=== PATIENT | female | born 1960 | race Caucasian/White ===

== ENCOUNTER 2017-11-04 10:26 | Emergency (ER) | payer SELFPAY ==
--- NOTE | 2017-11-04 11:38 | ER Document Report ---
ED Medical Screen (RME) - General Chief Complaint: Abdominal Pain Stated Complaint: ABDOMINAL PAIN/BILATERAL LEG PAIN Time Seen by Provider: 11/04/17 11:36 TRAVEL OUTSIDE OF THE U.S. IN LAST 30 DAYS: No - HPI Notes: 11/04/17 11:36 RAPID MEDICAL EVALUATION DISCLOSURE I have seen this patient as part of a Rapid Medical Evaluation and, if applicable, placed any initially appropriate orders. The patient will be seen and fully evaluated, including a full history and physical exam, by a provider ( in Main ED or Fast Track) when a room becomes available. Pt. c/o RLQ sharp constant abdominal pain for the last few days, associated with right low back pain. She also states since getting her b/l TKR in November (in [place]) she has had constant b/l LE pain from the knees radiating down her shins. - Related Data Allergies/Adverse Reactions: ciprofloxacin [From Cipro] Adverse Reaction (Verified 11/04/17 10:28) Past Medical History - Social History Chew tobacco use (# tins/day): No Frequency of alcohol use: None Drug Abuse: None Renal/ Medical History: Denies: Hx Peritoneal Dialysis Physical Exam - Vital signs Vitals: Temp Pulse Resp BP Pulse Ox 98.7 F 76 16 126/74 H 94 11/04/17 10:42 11/04/17 10:42 11/04/17 10:42 11/04/17 10:42 11/04/17 10:42 Course - Vital Signs Vital signs: Temp Pulse Resp BP Pulse Ox 98.7 F 76 16 126/74 H 94 11/04/17 10:42 11/04/17 10:42 11/04/17 10:42 11/04/17 10:42 11/04/17 10:42
[2017-11-04 12:15] LABS: ABSOLUTE BASOPHILS # (AUTO) 0.1 10^3/uL (0.0-0.2); ABSOLUTE EOSINOPHILS # (AUTO) 0.2 10^3/uL (0.0-0.6); ABSOLUTE MONOCYTES (AUTO) 0.4 10^3/uL (0.1-1.4); ABSOLUTE NEUT (AUTO) 4.6 10^3/uL (1.7-8.2); BASOPHILS % (AUTO) 0.8 % (0-2); EOSINOPHILS % (AUTO) 3.2 % (0-6); HEMATOCRIT 45.2 % (36.0-47.0); HEMOGLOBIN 15.3 g/dL (12.0-15.5); LYMPHOCYTES % (AUTO) 27.3 % (13-45); MEAN CORPUSCULAR HEMOGLOBIN 29.6 pg (27.0-33.4); MEAN CORPUSCULAR HGB CONC 33.8 g/dL (32.0-36.0); MEAN CORPUSCULAR VOLUME 88 fl (80-97); MONOCYTES % (AUTO) 5.7 % (3-13); PLATELET COUNT 217 10^3/uL (150-450); RED BLOOD COUNT 5.16 10^6/uL (3.72-5.28); RED CELL DISTRIBUTION WIDTH 13.5 % (11.5-14.0); TOTAL CELLS COUNTED % (AUTO) 100 %; WHITE BLOOD COUNT 7.2 10^3/uL (4.0-10.5)
[2017-11-04 12:33] LABS: ALANINE AMINOTRANSFERASE 27 U/L (9-52); ALBUMIN 4.6 g/dL (3.5-5.0); ALKALINE PHOSPHATASE 91 U/L (38-126); ANION GAP 10 (5-19); ASPARTATE AMINO TRANSFERASE 20 U/L (14-36); BILIRUBIN,DIRECT 0.3 mg/dL (0.0-0.4); BILIRUBIN,TOTAL 0.8 mg/dL (0.2-1.3); BLOOD UREA NITROGEN 17 mg/dL (7-20); CALCIUM 10.2 mg/dL (8.4-10.2); CARBON DIOXIDE 29 mmol/L (22-30); CHLORIDE 103 mmol/L (98-107); GLUCOSE 103 mg/dL (75-110); POTASSIUM 4.6 mmol/L (3.6-5.0); SODIUM 142.2 mmol/L (137-145); TOTAL PROTEIN 7.7 g/dL (6.3-8.2)
[2017-11-04 13:46] LABS: APPEARANCE,URINE CLEAR; BILIRUBIN,URINE NEGATIVE (NEGATIVE); COLOR,URINE YELLOW; GLUCOSE, URINE NEGATIVE (NEGATIVE); KETONES,URINE NEGATIVE (NEGATIVE); LEUKOCYTE ESTERASE,URINE NEGATIVE (NEGATIVE); NITRITE,URINE NEGATIVE (NEGATIVE); PROTEIN,URINE NEGATIVE (NEGATIVE); URINE SPECIFIC GRAVITY 1.015; UROBILINOGEN,URINE NEGATIVE mg/dL (<2.0)
[2017-11-04] MEDS ORDERED: DEXAMETHASONE SOD PHOS INJ 10 MG/1 ML VIAL IV ONE (13:55)
[2017-11-04] MEDS ORDERED: IPRATROPIUM/ALBUTEROL 0.5-2.5 MG/3 ML AMPUL NEB ONE (13:55)
--- NOTE | 2017-11-04 13:56 | ER Document Report ---
ED General - General Chief Complaint: Abdominal Pain Stated Complaint: ABDOMINAL PAIN/BILATERAL LEG PAIN Time Seen by Provider: 11/04/17 11:36 TRAVEL OUTSIDE OF THE U.S. IN LAST 30 DAYS: No - HPI Notes: Patient is a 57-year-old female with a history of asthma, bilateral TKA 5 months ago, diverticulosis who presents to the ED complaining of right lower quadrant pain x3-4 days and bilateral tibial pain since her surgery. Patient states that her abdominal pain will sometimes radiate into her back. She is still eating and drinking without difficulties otherwise. She is urinating normally and having bowel movements. Patient states that the pain is constant and has been there every day. Patient states that she does not have any pain to her knees, but does have pain to the tibia anteriorly bilaterally. Patient states that she has addressed this with her surgeon in [place] previously as well without resolve. Patient states that she moved to the area and is now here and will not be going back to [place]. She does admit to smoking but denies IV drug use. Patient states that she has been using her reading treatments regularly, but does continue to wheeze and have an dry nonproductive cough. No redness or swelling to the knees b/l. Denies any headache, fever, neck pain, URI, sore throat, chest pain, palpitations, syncope, cough, shortness of breath, wheeze, dyspnea, nausea/vomiting/diarrhea, urinary retention, dysuria, hematuria, loss of control of bowel or bladder, numbness/ tingling, saddle anesthesia, muscle paralysis/weakness, or rash. - Related Data Allergies/Adverse Reactions: ciprofloxacin [From Cipro] Adverse Reaction (Verified 11/04/17 10:28) Past Medical History - Social History Smoking Status: Current Every Day Smoker Chew tobacco use (# tins/day): No Frequency of alcohol use: None Drug Abuse: None Family History: Reviewed & Not Pertinent Patient has suicidal ideation: No Patient has homicidal ideation: No Pulmonary Medical History: Reports: Hx Asthma Renal/ Medical History: Denies: Hx Peritoneal Dialysis Past Surgical History: Reports: Hx Orthopedic Surgery - bilat knees, L ankle, neck Review of Systems - Review of Systems -: Yes All other systems reviewed and negative Physical Exam - Vital signs Vitals: Temp Pulse Resp BP Pulse Ox 98.7 F 76 16 126/74 H 94 11/04/17 10:42 11/04/17 10:42 11/04/17 10:42 11/04/17 10:42 11/04/17 10:42 - Notes Notes: PHYSICAL EXAMINATION: GENERAL: Well-appearing, well-nourished and in no acute distress. EYES: Pupils equal round and reactive to light, extraocular movements intact, sclera anicteric, conjunctiva are normal. ENT: Nares patent and without discharge. oropharynx clear without exudates. No tonsilar hypertrophy or erythema. Moist mucous membranes. NECK: Normal range of motion, supple without lymphadenopathy LUNGS: Breath sounds clear to auscultation bilaterally and equal. No wheezes rales or rhonchi. HEART: Regular rate and rhythm without murmurs, rubs, gallops. ABDOMEN: Soft, nondistended abdomen. No guarding, no rebound. No masses appreciated. Normal bowel sounds present. No CVA tenderness bilaterally. + tenderness to the RLQ. Jeong negative. Musculoskeletal: Knees b/l: FROM to passive/active. Strength 5+/5. No swelling , warmth, effusion, wound dehiscence, or tenderness. N/v intact distal. + tenderness to the anterior prox tibia b/l w/o deformity, ecchymosis, or erythema. Extremities: No cyanosis, clubbing, or edema b/l. Peripheral pulses 2+. Capillary refill less than 3 seconds. NEUROLOGICAL: Normal speech, normal gait. Normal sensory, motor exams PSYCH: Normal mood, normal affect. SKIN: Warm, Dry, normal turgor, no rashes or lesions noted. Course - Re-evaluation Re-evalutation: 11/04/17 15:06 Patient has been repeatedly requesting narcotics as she was on Percocet status post her knee replacements. Patient was advised that I will not be prescribing her narcotics at this time. Offered Toradol which she initially declined than Tylenol which she then declined and then requested Toradol so Toradol was ultimately given. Pt is very upset about the narcotics issue and wants another provider. I did review with Dr. Lora who is in agreement with my treatment at this time and states that the work up has otherwise been completed and she can be discharged when results are back if warranted. 11/04/17 15:29 Patient is an afebrile, well-hydrated, 57-year-old female who presents to the ED with abdominal pain unspecified and b/l tibial pain, chronic. Vitals are acceptable. PE is otherwise unremarkable. CT scan of the abdomen and pelvis was unremarkable for any acute pathology but does note a 12mm common bile duct. X-rays of the tib/fib bilaterally were negative. She has no significant tachycardia, tachypnea, or hypoxia. She is tolerating p.o. without any difficulties. Observation for appendicitis reviewed. CBC, CMP, urinalysis were unremarkable for any acute pathology aside from some blood noted in the urine. At this time, I have lower suspicion for acute appendicitis, bowel obstruction, acute cholecystitis, acute cholangitis, perforated diverticulitis, incarcerated hernia, pancreatitis, perforated ulcer, peritonitis, sepsis, pelvic inflammatory disease, or other systemic emergent condition at this time. Patient is aware that her condition can change from initial presentation and she needs to monitor symptoms closely and seek medical attention if any acute changes. I will send her home with naproxen. Conservative measures otherwise for symptoms. Recheck with your PCM in 3-5 days. Consider consult with Ortho/ PT. Return to the ED with any worsening/concerning symptoms otherwise as reviewed in discharge. Patient is in agreement. - Vital Signs Vital signs: Temp Pulse Resp BP Pulse Ox 97.7 F 64 20 133/58 H 95 11/04/17 15:25 11/04/17 15:25 11/04/17 15:25 11/04/17 15:25 11/04/17 15:25 - Laboratory Result Diagrams: 11/04/17 11:51 11/04/17 11:51 Laboratory results interpreted by me: 11/04/17 11:37 Urine Blood MODERATE H Discharge - Discharge Clinical Impression: Bilateral lower extremity pain Unspecified abdominal pain Qualifiers: Abdominal location: right lower quadrant Qualified Code(s): R10.31 - Right lower quadrant pain Condition: Stable Disposition: HOME, SELF-CARE Instructions: Abdominal Pain ([facility]), Observation for Appendicitis ([facility]) Additional Instructions: Rest, Ice, Compression, Elevation Tylenol/ibuprofen as needed Light stretches daily Strength exercises as able Moist heat and massage may help F/u with your PCP in 3-5 days for a recheck Schedule an outpatient f/u with General surgery. Consider consult(s) with Orthopedics/physical therapy for ongoing/worsening symptoms Return to the ED with any worsening symptoms and/or development of fever, headache, chest pain, palpitations, syncope, shortness of breath, trouble breathing, abdominal pain, n/v/d, muscle weakness/paralysis, numbness/tingling, swelling, redness, or other worsening symptoms that are concerning to you. Prescriptions: Naproxen 500 mg PO BID PRN #30 tablet PRN Reason: Forms: Elevated Blood Pressure, Smoking Cessation Education Referrals: [facility] ([facility]) [Provider Group] - Follow up as needed MARTHA BARONE MD [ACTIVE STAFF] - Follow up as needed
[2017-11-04] MEDS ORDERED: KETOROLAC TROMETHAMINE INJ/PF 30 MG/1 ML SDV IV ONE ×2 (14:01→14:37)
[2017-11-04] MEDS ORDERED: ACETAMINOPHEN 325 MG TABLET PO ONE (14:29)
--- NOTE | 2017-11-04 15:15 | RADIOLOGY REPORT (SQ) ---
EXAM DESCRIPTION: TIB FIB BILAT 2 VIEWS COMPLETED DATE/TIME: 11/04/2017 3:01 pm REASON FOR STUDY: tibial pain s/p bilateral TKA 5mos ago COMPARISON: None. NUMBER OF VIEWS: Two views. TECHNIQUE: Two radiographic images acquired of the right tibia and fibula to include the knee and an kle in at least one projection. LIMITATIONS: None. FINDINGS: MINERALIZATION: Normal. BONES: No acute fracture or dislocation. No worrisome bone lesions. SOFT TISSUES: No obvious swelling or foreign body. OTHER: Intact knee arthroplasty. IMPRESSION: No acute findings. TECHNICAL DOCUMENTATION: JOB ID: [id number] [employer]- All Rights Reserved Reading location - IP/workstation name: Unknown
--- NOTE | 2017-11-04 15:23 | RADIOLOGY REPORT (SQ) ---
EXAM DESCRIPTION: CT ABD/PELVIS WITH IV ONLY COMPLETED DATE/TIME: 11/04/2017 3:09 pm REASON FOR STUDY: RLQ pain COMPARISON: None. TECHNIQUE: CT scan of the abdomen and pelvis performed using helical scanning technique with dynamic intravenous contrast injection. No oral contrast. Images reviewed with lung, soft tissue, and bone windows. Reconstructed coronal and sagittal MPR images reviewed. Delayed images for evaluation of the urinary system also acquired. All images stored on PACS. All CT scanners at this facility use dose modulation, iterative reconstruction, and/or weight based d osing when appropriate to reduce radiation dose to as low as reasonably achievable (ALARA). [facility]: Dose Right [facility]: CareDose [facility]: Dose Right [facility]: Teradose 4D [facility]: First Aid Shot Therapy CONTRAST TYPE AND DOSE: 100 cc Isovue 370- low osmolar. RENAL FUNCTION: GFR > 60. RADIATION DOSE: . LIMITATIONS: None. FINDINGS: LOWER CHEST: No significant findings. No nodules or infiltrates. LIVER: Normal size. No masses. Common bile duct measures about 12 mm in the pancreatic head. Mild i ntrahepatic biliary dilatation. Borderline dilatation of the proximal pancreatic duct. SPLEEN: Normal size. No focal lesions. PANCREAS: No masses. No significant calcifications. No adjacent inflammation or peripancreatic fluid collections. Pancreatic duct not dilated. GALLBLADDER: No identified stones by CT criteria. No inflammatory changes to suggest cholecystitis. ADRENAL GLANDS: No significant masses or asymmetry. RIGHT KIDNEY AND URETER: No solid masses. No significant calcifications. No hydronephrosis or hyd roureter. LEFT KIDNEY AND URETER: No solid masses. No significant calcifications. No hydronephrosis or hydr oureter. AORTA AND VESSELS: No aneurysm. No dissection. Renal arteries, SMA, celiac without stenosis. RETROPERITONEUM: No retroperitoneal adenopathy, hemorrhage or masses. BOWEL AND PERITONEAL CAVITY: No masses or inflammatory changes. No free fluid or peritoneal masses. APPENDIX: Normal. PELVIS: No mass. No free fluid. Normal bladder. ABDOMINAL WALL: No masses. No hernias. BONES: No significant or acute findings. OTHER: No other significant finding. IMPRESSION: Biliary dilatation without visualized gallstones or ampullary mass. Correlation with [facility] chemistries is recommended. TECHNICAL DOCUMENTATION: JOB ID: [id number] Quality ID # [id number]: Final reports with documentation of one or more dose reduction techniques (e.g., Au tomated exposure control, adjustment of the mA and/or kV according to patient size, use of iterative reconstruction technique) 2010 [email or web address]- All Rights Reserved Reading location - IP/workstation name: Unknown
[2017-11-04 15:27] VITALS: BP 133/58
== END 2017-11-04 15:46 | disposition home or self-care (01) ==
LOC: ER 10:26
DX: R10.13 Epigastric pain (principal); M79.662 Pain in left lower leg; M79.661 Pain in right lower leg; G89.29 Other chronic pain; J45.20 Mild intermittent asthma, uncomplicated; Z96.653 Presence of artificial knee joint, bilateral; Z87.19 Personal history of other diseases of the digestive system; F17.200 Nicotine dependence, unspecified, uncomplicated; R05 Cough
CPT/HCPCS: 94640; 99284; 96374; 96375; 36415; 85025; 80053; 81001; 73590; 74177; J1885; J1100; J7620

== ENCOUNTER 2018-07-28 11:53 | Emergency (ER) | payer SELFPAY ==
--- NOTE | 2018-07-28 12:24 | EKG REPORT ---
SEVERITY:- OTHERWISE NORMAL ECG - SINUS TACHYCARDIA : Confirmed by: Jose Heiwtt MD 28-Jul-2018 12:23:44
[2018-07-28] MEDS ORDERED: IPRATROPIUM/ALBUTEROL 0.5-2.5 MG/3 ML AMPUL NEB ONE ×2 (12:48→15:21)
[2018-07-28] MEDS ORDERED: METHYLPREDNISOLONE INJ 125 MG/2 ML SDV IV ONE (12:49)
--- NOTE | 2018-07-28 12:50 | ER Document Report ---
ED Medical Screen (RME) - General Chief Complaint: Flu Symptoms Stated Complaint: FEVER Time Seen by Provider: 07/28/18 12:46 Notes: Patient says she is having a hard time breathing. Been going on all this past week. She is developed a cough which is productive of yellow sputum. She has had some fevers as well. Patient denies a history of asthma or COPD, even though she is still a cigarette smoker. Says her doctor checked her out for C OPD a couple of years ago and told her she did not have it. Complains of some headache. Denies any heart problems or congestive heart failure. Denies diabetes. TRAVEL OUTSIDE OF THE U.S. IN LAST 30 DAYS: No - Related Data Allergies/Adverse Reactions: ciprofloxacin [From Cipro] Adverse Reaction (Verified 07/28/18 11:55) Past Medical History - Social History Chew tobacco use (# tins/day): No Frequency of alcohol use: None Drug Abuse: None Pulmonary Medical History: Reports: Hx Asthma Renal/ Medical History: Denies: Hx Peritoneal Dialysis Past Surgical History: Reports: Hx Orthopedic Surgery - bilat knees, L ankle, neck Physical Exam - Vital signs Vitals: Temp Pulse Resp BP Pulse Ox 100.0 F 106 H 16 98/67 L 94 07/28/18 12:25 07/28/18 12:25 07/28/18 12:25 07/28/18 12:25 07/28/18 12:25 Course - Vital Signs Vital signs: Temp Pulse Resp BP Pulse Ox 100.0 F 106 H 16 98/67 L 94 07/28/18 12:25 07/28/18 12:25 07/28/18 12:25 07/28/18 12:25 07/28/18 12:25
--- NOTE | 2018-07-28 13:29 | RADIOLOGY REPORT (SQ) ---
EXAM DESCRIPTION: CHEST 2 VIEWS COMPLETED DATE/TIME: 07/28/2018 1:20 pm REASON FOR STUDY: Wheezing, cough, fever, smoker COMPARISON: None. EXAM PARAMETERS: NUMBER OF VIEWS: two views TECHNIQUE: Digital Frontal and Lateral radiographic views of the chest acquired. RADIATION DOSE: NA LIMITATIONS: none FINDINGS: LUNGS AND PLEURA: No opacities, masses or pneumothorax. No pleural effusion. MEDIASTINUM AND HILAR STRUCTURES: No masses or contour abnormalities. HEART AND VASCULAR STRUCTURES: Heart normal size. No evidence for failure. BONES: No acute findings. HARDWARE: None in the chest. OTHER: No other significant finding. IMPRESSION: NO ACUTE RADIOGRAPHIC FINDING IN THE CHEST. TECHNICAL DOCUMENTATION: JOB ID: [id number] [employer]- All Rights Reserved Reading location - IP/workstation name: [email or web address]
[2018-07-28 13:35] LABS: ABSOLUTE BASOPHILS # (AUTO) 0.1 10^3/uL (0.0-0.2); ABSOLUTE EOSINOPHILS # (AUTO) 0.2 10^3/uL (0.0-0.6); ABSOLUTE LYMPHOCYTES (AUTO) 1.2 10^3/uL (0.5-4.7); ABSOLUTE MONOCYTES (AUTO) 1.2 10^3/uL (0.1-1.4); ABSOLUTE NEUT (AUTO) 13.9 10^3/uL (1.7-8.2); BASOPHILS % (AUTO) 0.4 % (0-2); EOSINOPHILS % (AUTO) 1.4 % (0-6); HEMOGLOBIN 14.7 g/dL (12.0-15.5); LYMPHOCYTES % (AUTO) 7.4 % (13-45); MEAN CORPUSCULAR HEMOGLOBIN 31.5 pg (27.0-33.4); MEAN CORPUSCULAR HGB CONC 34.1 g/dL (32.0-36.0); MEAN CORPUSCULAR VOLUME 92 fl (80-97); PLATELET COUNT 207 10^3/uL (150-450); RED BLOOD COUNT 4.66 10^6/uL (3.72-5.28); RED CELL DISTRIBUTION WIDTH 13.5 % (11.5-14.0); SEGMENTED NEUTROPHILS % (AUTO) 83.8 % (42-78); TOTAL CELLS COUNTED % (AUTO) 100 %; WHITE BLOOD COUNT 16.6 10^3/uL (4.0-10.5)
[2018-07-28 13:50] LABS: ALANINE AMINOTRANSFERASE 20 U/L (9-52); ALKALINE PHOSPHATASE 107 U/L (38-126); ANION GAP 11 (5-19); ASPARTATE AMINO TRANSFERASE 26 U/L (14-36); BILIRUBIN,DIRECT 0.3 mg/dL (0.0-0.4); BILIRUBIN,TOTAL 1.1 mg/dL (0.2-1.3); BLOOD UREA NITROGEN 15 mg/dL (7-20); CALCIUM 10.2 mg/dL (8.4-10.2); CARBON DIOXIDE 29 mmol/L (22-30); CHLORIDE 102 mmol/L (98-107); GLUCOSE 103 mg/dL (75-110); POTASSIUM 4.3 mmol/L (3.6-5.0); SODIUM 142.3 mmol/L (137-145); TOTAL PROTEIN 7.7 g/dL (6.3-8.2)
[2018-07-28] MEDS ORDERED: ACETAMINOPHEN 325 MG TABLET PO ONE (15:14)
[2018-07-28] MEDS ORDERED: NORMAL SALINE 1000 ML 1,000 ML IV ONE (16:48)
--- NOTE | 2018-07-28 16:57 | ER Document Report ---
ED General - General TRAVEL OUTSIDE OF THE U.S. IN LAST 30 DAYS: No <EZIO SANTIAGO - Last Filed: 07/28/18 18:39> <RAZIA LARKIN - Last Filed: 07/29/18 17:42> - General Chief Complaint: Flu Symptoms Stated Complaint: FEVER Time Seen by Provider: 07/28/18 12:46 Notes: 58-year-old female with past medical history of diverticulitis presents to the emergency department for fever, chills, difficulty breathing, back pain, chest pain, headache for about a week. She states she has a productive cough causing sternal chest pain that is reproducible. She complains of dizziness. She denies earache or sore throat. She complains of thirst. She complains of back pain. She complains of decreased appetite. She denies nausea, vomiting, diarrhea. She is complaining of left lower quadrant abdominal pain. She denies bloating. (EZIO SANTIAGO) - Related Data Allergies/Adverse Reactions: ciprofloxacin [From Cipro] Adverse Reaction (Verified 07/28/18 11:55) Past Medical History - Social History Smoking Status: Current Every Day Smoker Chew tobacco use (# tins/day): No Frequency of alcohol use: None Drug Abuse: None Family History: Reviewed & Not Pertinent Patient has suicidal ideation: No Patient has homicidal ideation: No Pulmonary Medical History: Reports: Hx Asthma Renal/ Medical History: Denies: Hx Peritoneal Dialysis Past Surgical History: Reports: Hx Orthopedic Surgery - bilat knees, L ankle, neck <EZIO SANTIAGO - Last Filed: 07/28/18 18:39> Review of Systems - Review of Systems Constitutional: See HPI EENT: See HPI Cardiovascular: See HPI Respiratory: See HPI Gastrointestinal: See HPI Genitourinary: See HPI Female Genitourinary: No symptoms reported Musculoskeletal: No symptoms reported Skin: No symptoms reported Hematologic/Lymphatic: No symptoms reported Neurological/Psychological: See HPI <EZIO SANTIGAO - Last Filed: 07/28/18 18:39> Physical Exam <EZIO SANTIAGO - Last Filed: 07/28/18 18:39> - Vital signs Vitals: Temp Pulse Resp BP Pulse Ox 100.0 F 106 H 16 98/67 L 94 07/28/18 12:25 07/28/18 12:25 07/28/18 12:25 07/28/18 12:25 07/28/18 12:25 - Notes Notes: PHYSICAL EXAMINATION: Reviewed vital signs and charting by RN GENERAL: Alert, interacts well. Mild distress. HEAD: Normocephalic, atraumatic. EYES: Pupils equal, round. Extraocular movements intact. ENT: Oral mucosa moist. NECK: Full range of motion. Supple. Trachea midline. LUNGS: Clear to auscultation bilaterally, no wheezes, rales, or rhonchi. No respiratory distress. HEART: Regular rate and rhythm. No murmur ABDOMEN: soft, left lower quadrant tender to palpation . Non-distended. Bowel sounds present in all 4 quadrants. no McBurney's point tenderness, no Jeong sign. EXTREMITIES: Moves all 4 extremities spontaneously. No edema, No cyanosis. NEUROLOGICAL: Alert. Normal speech. PSYCH: Normal affect, normal mood. SKIN: Warm, dry, normal turgor. No rashes or lesions noted. (EZIO SANTIAGO) Course - Laboratory Result Diagrams: 07/28/18 12:58 07/28/18 12:58 <EZIO SANTIAGO - Last Filed: 07/28/18 18:39> - Laboratory Result Diagrams: 07/28/18 12:58 07/28/18 12:58 <RAZIA LARKIN - Last Filed: 07/29/18 17:42> - Re-evaluation Re-evalutation: 07/28/18 16:57 58-year-old female in mild distress here for flulike symptoms. Discussed case with Dr. Shields. Plan to add a rapid influenza. Patient is mildly tachycardic and blood pressure was 98/67. CMP showed a bicarb of 32 which could possibly represent a contraction alkalosis so plan is to give her a 1L bolus and see if she responds. Patient was complaining of headache so she received Tylenol 970 mg 1 time. Patient with history of diverticulitis and she does complain of some vague left lower quadrant pain, complains of bloating, will further investigate to see if a scan is warranted as she does have a leukocytosis of 16.6 in setting of fever. 07/28/18 18:[address] Shields and plan is to order a CT abdomen with IV and oral contrast to ensure we are not missing a diverticulitis. Patient denied any right upper quadrant pain and had negative Jeong sign giving me a low suspicion for a cholecystitis. Patient without any right lower quadrant pain or any rebound tenderness. I do not have any concerns for an appendicitis. (EZIO SANTIAGO) Bedside handoff was received by previous shift. Patient is resting comfortably drinking her oral contrast awaiting CT. Patient currently reports some nausea, will order antiemetics. CAT scan of the abdomen pelvis does not show any acute findings other than mild left-sided lung opacity. Discussed case with Dr. Shields who recommends starting the patient on antibiotics for pneumonia. I then discussed this with the patient who agrees with plan. Patient is vital signs are within normal limits. Patient will be discharged home in stable condition. (RAZIA LARKIN) - Vital Signs Vital signs: Temp Pulse Resp BP Pulse Ox 98.2 F 106 H 19 129/81 H 95 07/28/18 22:01 07/28/18 12:25 07/28/18 22:01 07/28/18 22:01 07/28/18 22:01 - Laboratory Laboratory results interpreted by me: 07/28/18 12:58 WBC 16.6 H Seg Neutrophils % 83.8 H Lymphocytes % 7.4 L Absolute Neutrophils 13.9 H Discharge <EZIO SANTIAGO - Last Filed: 07/28/18 18:39> <RAZIA LARKIN - Last Filed: 07/29/18 17:42> - Discharge Clinical Impression: Pneumonia Condition: Stable Disposition: HOME, SELF-CARE Additional Instructions: The CAT scan of your abdomen today did not show any evidence of diverticulitis. It did show a small pneumonia. I will start you on antibiotics for this. Please follow-up with your primary care doctor, call them Tuesday morning to schedule a follow-up appointment. Please return to the emergency department if you worsen in any way or develop shortness of breath, difficulty breathing, fevers that are not responding to Tylenol or ibuprofen or any other symptom that is concerning to you. Prescriptions: RX: Doxycycline Hyclate 100 mg PO BID #14 capsule Ondansetron [Zofran Odt 4 mg Tablet] 1 - 2 tab PO Q4H PRN #15 tab.rapdis PRN Reason: For Nausea/Vomiting
[2018-07-28 17:43] LABS: A TYPE INFLUENZA AG NEGATIVE (NEGATIVE); B INFLUENZA AG NEGATIVE (NEGATIVE)
--- NOTE | 2018-07-28 21:13 | RADIOLOGY REPORT (SQ) ---
CT ABDOMEN WITH IV CONTRAST HISTORY: LLQ pain, h/o diverticulitis COMPARISON: 11/04/2017 TECHNIQUE: CT scan of the abdomen and pelvis with IV contrast. Oral contrast was administered. This exam was performed according to our departmental dose-optimization program, which includes automated exposure control, adjustment of the mA and/or kV according to patient size and/or use of iterative reconstruction technique. FINDINGS: Minimal ground glass opacity in the lingula. No pleural or pericardial effusions. A small hiatal hernia is seen. The liver, spleen, pancreas, gallbladder, adrenal glands, and kidneys are unremarkable. No urinary stones are seen. The pelvic organs are also unremarkable. No small bowel obstruction. The appendix is normal. There are scattered colonic diverticula without surrounding inflammatory changes. No intraperitoneal free fluid or free air is seen. Mild degenerative disease at L4-L5. The aorta is normal caliber and contains atherosclerotic calcifications. No body wall hernia is seen. IMPRESSION: 1. Diverticulosis without inflammatory changes. 2. Small hiatal hernia.
[2018-07-28] MEDS ORDERED: DOXYCYCLINE HYCLATE 100 MG TABLET PO ONE (21:57)
[2018-07-28] MEDS ORDERED: ONDANSETRON ODT 4 MG TAB (6 TAB/ER DISP) PO PRN (21:58)
[2018-07-28 22:03] VITALS: BP 129/81
== END 2018-07-28 22:27 | disposition home or self-care (01) ==
LOC: ER 11:53
DX: J18.9 Pneumonia, unspecified organism (principal); R50.9 Fever, unspecified; R06.02 Shortness of breath; M54.9 Dorsalgia, unspecified; R07.9 Chest pain, unspecified; R51 Headache; R05 Cough; R42 Dizziness and giddiness; R63.0 Anorexia; R10.32 Left lower quadrant pain; F17.200 Nicotine dependence, unspecified, uncomplicated; J45.909 Unspecified asthma, uncomplicated
CPT/HCPCS: 93005; 94640 ×2; 99284; 96361; 96374; 36415; 85025; 80053; 84484; 87804; 71046; 74160; 93010; J2930; J7030; J7620

== ENCOUNTER → 2019-01-02 | Outpatient (CLI) | payer MEDICAID ==
[2019-01-02 11:20] LABS: ABSOLUTE BASOPHILS # (AUTO) 0.1 10^3/uL (0.0-0.2); ABSOLUTE EOSINOPHILS # (AUTO) 0.3 10^3/uL (0.0-0.6); ABSOLUTE LYMPHOCYTES (AUTO) 1.7 10^3/uL (0.5-4.7); ABSOLUTE MONOCYTES (AUTO) 0.3 10^3/uL (0.1-1.4); ABSOLUTE NEUT (AUTO) 3.9 10^3/uL (1.7-8.2); BASOPHILS % (AUTO) 0.8 % (0-2); EOSINOPHILS % (AUTO) 5.3 % (0-6); HEMATOCRIT 40.9 % (36.0-47.0); HEMOGLOBIN 13.7 g/dL (12.0-15.5); MEAN CORPUSCULAR HEMOGLOBIN 30.2 pg (27.0-33.4); MEAN CORPUSCULAR HGB CONC 33.5 g/dL (32.0-36.0); MEAN CORPUSCULAR VOLUME 90 fl (80-97); MONOCYTES % (AUTO) 4.7 % (3-13); PLATELET COUNT 223 10^3/uL (150-450); RED BLOOD COUNT 4.54 10^6/uL (3.72-5.28); RED CELL DISTRIBUTION WIDTH 13.4 % (11.5-14.0); SEGMENTED NEUTROPHILS % (AUTO) 62.2 % (42-78); TOTAL CELLS COUNTED % (AUTO) 100 %; WHITE BLOOD COUNT 6.3 10^3/uL (4.0-10.5)
[2019-01-02 11:45] LABS: URIC ACID 5.2 mg/dL (2.5-7.5)
[2019-01-02 11:49] LABS: C-REACTIVE PROTEIN < 5.0 mg/L (<10.0)
[2019-01-02 12:02] LABS: ERYTHROCYTE SEDIMENTATION RATE 16 mm/hr (0-30)
[2019-01-04 07:20] LABS: CYCLIC CITRUL PEPTIDE IGG/A AB 6 units (0-19)
== END ==
LOC: LAB 10:54
PROVIDERS: ATTEND Physician Assistant
DX: M65.9 Synovitis and tenosynovitis, unspecified (principal)
CPT/HCPCS: 36415; 84443; 84550; 85025; 85652; 86038; 86140; 86200; 86430